=== PATIENT | male | born 1960 | race American Indian/Alaskan Native ===

== ENCOUNTER 2020-11-10 08:41 | Day surgery (SDC) | payer OTHER ==
[2020-11-10 09:46] LABS: Basophils % (Auto) 0.6 % (0.0-1.8); Eosinophils # (Auto) 0.1 K/mm3 (0.0-0.4); Eosinophils % (Auto) 1.6 % (0.0-4.3); Hematocrit 38.1 % (35.5-45.6); Hemoglobin 12.5 gm/dl (11.8-15.2); Lymphocytes # (Auto) 2.4 K/mm3 (1.2-5.4); Lymphocytes % (Auto) 39.8 % (13.4-35.0); Mean Corpuscular HGB Conc 33 % (32-34); Mean Corpuscular Volume 94 fl (84-94); Monocytes # (Auto) 0.4 K/mm3 (0.0-0.8); Monocytes % (Auto) 7.4 % (0.0-7.3); Platelet Count 163 K/mm3 (140-440); Red Blood Count 4.07 M/mm3 (3.65-5.03); Red Cell Distribution Width 13.4 % (13.2-15.2)
[2020-11-10 09:58] LABS: INR 0.9 (0.87-1.13)
[2020-11-10] MEDS ORDERED: ASPIRIN EC 325 MG TAB PO ONE (10:00)
[2020-11-10] MEDS: SODIUM CHLORIDE 0.9% 500 ML 500 ML IV SCH ×2 (10:12→11:37)
[2020-11-10 10:39] LABS: BUN/Creatinine Ratio 14; Blood Urea Nitrogen 14 mg/dL (9-20); Calcium 9.7 mg/dL (8.4-10.2); Hemolysis Index 6
[2020-11-10] MEDS ORDERED: HEPARIN 10,000 UNITS/10 ML VIAL ONE (11:10)
[2020-11-10] MEDS ORDERED: MIDAZOLAM 2 MG/2 ML INJ ONE (11:10)
[2020-11-10] MEDS ORDERED: HEPARIN/NS 5000 UNIT/500ML 1,000 ML IR ONE (11:10)
[2020-11-10] MEDS ORDERED: VERAPAMIL 5 MG/2 ML INJ ONE (11:11)
[2020-11-10] MEDS ORDERED: fentaNYL 100 MCG/2 ML INJ ONE (11:11)
[2020-11-10] MEDS ORDERED: NITROGLYCERIN SYRINGE 3 ML ONE (11:11)
[2020-11-10] MEDS ORDERED: LIDOCAINE (2%) 20 MG/1 ML VIAL 20 ML MDV INFILTRATI ONE (11:11)
[2020-11-10] MEDS ORDERED: traMADol 50 MG TAB PO PRN (12:06)
[2020-11-10] MEDS ORDERED: HYDROcodone/ACETAMINOPHEN 5-325 MG TAB PO PRN (12:06)
--- NOTE | 2020-11-10 12:08 | Short Stay Summary ---
Short Stay Documentation Date of service: 11/10/20 - History H&P: obtained from office - Allergies and Medications Current Medications: Allergies No Known Allergies Allergy (Unverified 11/10/20 08:42) Active Medications Sodium Chloride (Nacl 0.9% 500 Ml) 500 mls @ 50 mls/hr IV DIRECT KANE Stop: 11/10/20 19:59 Last Admin: 11/10/20 11:37 Dose: 50 mls/hr Documented by: - Brief post op/procedure progress note Date of procedure: 11/10/20 Pre-op diagnosis: cardiomyopathy Post-op diagnosis: same Procedure: see report Anesthesia: local Estimated blood loss: minimal Pathology: none - Disposition Condition at discharge: Good Disposition: [id number] TO HOME OR SELFCARE - Discharge Diagnoses (1) Cardiomyopathy Status: Chronic Qualifiers: Cardiomyopathy type: dilated Qualified Code(s): I42.0 - Dilated cardiomyopathy (2) Hypertension Status: Chronic Qualifiers: Hypertension type: essential hypertension Qualified Code(s): I10 - Essential (primary) hypertension (3) Hyperlipemia, mixed Status: Chronic Short Stay Discharge Plan Activity: advance as tolerated Diet: low fat, low cholesterol, low salt Wound: keep clean and dry Follow up with: PRIMARY CAREMD [Primary Care Provider] - 7 Days
--- NOTE | 2020-11-10 12:16 | Cardiac Catherization Report ---
LEFT HEART CATHETERIZATION CLINICAL INFORMATION: This is a 60-year-old gentleman who has history of cardiomyopathy, here for left heart catheterization for definitive diagnosis for ischemic evaluation. Procedure was done with moderate sedation started at 11:37, finished at 11:45, 8 minutes of moderate sedation. Procedure was performed via right radial artery, sterile technique, local anesthesia, 6-Djiboutian radial sheath inserted. Left system engaged JL3.5 catheter following findings: Left main is large, long and patent, trifurcates into large, long LAD that is patent. Diagonal 1 small caliber vessel, patent. Ramus large caliber vessel, patent. CIRCUMFLEX: The AV groove is a large caliber vessel, goes a large OM1 with upper and lower branches that are patent. RCA engaged with JR4 catheter, large dominant vessel. PDA, PLV medium caliber and patent. LV gram shows moderate LV dysfunction, EF 30% to 35%. LVEDP 18 mmHg, LV is 147. Aortic is 147/83, no gradient across the aortic valve on pullback. 5-Djiboutian catheters all taken over guidewire, 6-Djiboutian radial sheath was discontinued. Radial band applied. No hematoma, no bleeding. SUMMARY: Left main patent, LAD patent, ramus patent, circ patent, OM1 patent, RCA patent with moderate LV dysfunction, nonischemic cardiomyopathy. Continue medical management. JOB# [id number] KENDRA/SANDRA APONTE
[2020-11-10 14:17] VITALS: BP 144/79
== END 2020-11-10 15:10 | disposition home or self-care (01) ==
LOC: CATHLABREC 08:41
PROVIDERS: ATTEND Internal Medicine
DX: I42.0 Dilated cardiomyopathy (principal); E78.2 Mixed hyperlipidemia; R93.41 Abnormal radiologic findings on diagnostic imaging of renal pelvis, ureter, or bladder; E11.9 Type 2 diabetes mellitus without complications; I10 Essential (primary) hypertension; I34.0 Nonrheumatic mitral (valve) insufficiency; Z79.899 Other long term (current) drug therapy; Z98.890 Other specified postprocedural states; Z79.01 Long term (current) use of anticoagulants
CPT/HCPCS: 36415; 80048; 85025; 85610; 85730; 93005; 93458; C1894; J1644; J2250; J3010; J7040; Q9967

== ENCOUNTER 2021-04-16 09:53 | Emergency (ER) | payer OTHER ==
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
== END 2021-04-16 11:37 | disposition home or self-care (01) ==
LOC: ED 09:53
CPT/HCPCS: 99282